=== PATIENT | male | born 1955 | race Caucasian/White ===

== ENCOUNTER 2016-07-30 16:25 | Inpatient (IN) | payer MEDICAID ==
[2016-07-30 17:44] LABS: Basophils % (Auto) 0.6 % (0.0-1.8); Hematocrit 44.9 % (35.5-45.6); Hemoglobin 14.7 gm/dl (11.8-15.2); Mean Corpuscular HGB Conc 33 % (32-34); Mean Corpuscular Hemoglobin 28 pg (28-32); Mean Corpuscular Volume 86 fl (84-94); Platelet Count 170 K/mm3 (140-440); Red Cell Distribution Width 13.2 % (13.2-15.2); White Blood Count 8.1 K/mm3 (4.5-11.0)
--- NOTE | 2016-07-30 17:54 | Admit Criteria Form ---
Admission Criteria Documentation: DIABETES Clinical Indications for Admission to Inpatient Care (Place 'X' for any and all applicable criteria): Admission is indicated by presence of ALL (if I & II) or ANY ONE (if III or IV) of the following (1)(2)(3)(4): [X]I. Diabetes is uncontrolled as indicated by ANY ONE of the following: [ ]a) Diabetic ketoacidosis as indicated by ALL of the following (8): [ ]i) Hyperglycemia (eg, plasma glucose greater than 200 mg/ dL (11.1 mmol/L)) [ ]ii) Acidosis (eg, arterial pH less than 7.30, serum bicarbonate level less than 15 mEq/L (mmol/L)) [ ]iii) Moderate ketonuria or ketonemia []b) Hyperglycemic hyperosmolar state as indicated by ALL of the following(9)(10): [ ]i) Neurologic dysfunction (eg, stupor, coma, hemiparesis , seizure)(13) [ ]ii) Plasma glucose greater than 600 mg/dL (33.3 mmol/L) [ ]iii) Serum osmolality greater than 320 mOsm/kg (mmol/kg) [X]c) Severe signs or symptoms secondary to hyperglycemia indicated by ANY ONE of the following: [ ]i) Altered mental status(10) [X]ii) Significant hypovolemia or dehydration [ ]iii) Intractable nausea or vomiting [ ]iv) Unexplained fever or severe infection [X]v) Severe electrolyte abnormality (eg, hypokalemia, hyperkalemia, hypernatremia) [ ]II. Management at other levels of care (Also use Diabetes: Observation Care as appropriate) is not feasible because of ANY ONE of the following: [ ]a) Condition was not adequately corrected with treatment at other levels of care. [ ]b) Treatment at other levels of care is not appropriate because of condition severity (eg, hyperosmolar coma). [ ]III. Contraindications and/or Inappropriate clinical situations for Observational Care in patients with Diabetes, when ANY ONE of the following is required: [ ]a) Patient require specific diagnostic workup or therapeutic intervention 22 [ ]b) Patient with abnormal vital signs or altered mental status 23 [ ]IV. General contraindications and/or Inappropriate clinical situations for Observational Care in patients with Diabetes, when ANY ONE of the following is required: [ ]a) Prediction of prolongation of LOS based on ANY ONE of the following may be considered as a contraindication for observational care 2, 3, 4, 5, 6, 7, 8, 9, 10, 11 [ ]i) Age > 65 yrs. [ ]ii) Patient arriving by ambulance [ ]iii) Patient with high acuity [ ]iv) Patient requiring vital sign monitoring [ ]v) Patient on IV medication [ ]b) Systolic blood pressures 180mmHg 3,12 [ ]c) Patient with altered mental status including delirium and other alteration of consciousness, (3) [ ]d) Patient whose discharge disposition will be to a fpc home or rehabilitation home should not be managed in Emergency Department Observation Unit. CMS rule requires 3 days hospital stay before such placement.3,13 [ ]e) Patient with failure to thrive due to broad array of etiologies 3,16,17 [ ]f) Inability to ambulate 3,14 Extended stay beyond goal length of stay may be needed for(3)(20): [ ]a) Treatment of precipitating causes [ ]b) Development of hypoglycemia [ ]c) Complications of treatment [ ]d) Complications of decompensated diabetes (eg, acute gastric dilatation, persistent metabolic or neurologic derangement) [ ]e) Active Comorbidities [ ]f) Older patients( 65 years or older) The original [employer] content created by [employer] has been revised. The portions of the content which have been revised are identified through the use of italic text or in bold,and [facility] has neither reviewed nor approved the modified material. All other unmodified content is copyright [facility]. Please see references footnoted in the original [facility] edition 2016 Admission Criteria Met: Yes
[2016-07-30] MEDS ORDERED: NACL 0.9% 1000 ML 1,000 ML IV ONE ×2 (17:56→19:16)
[2016-07-30 18:26] LABS: BUN/Creatinine Ratio 16.19; Calcium 9.4 mg/dL (8.4-10.2); Chloride 90.1 mmol/L (98-107); Potassium 5.4 mmol/L (3.6-5.0)
--- NOTE | 2016-07-30 18:36 | Emergency Department Report ---
- General Chief complaint: Hyperglycemia Stated complaint: SUGAR HIGH Time Seen by Provider: 07/30/16 17:55 Source: patient Mode of arrival: Ambulatory Limitations: No Limitations - History of Present Illness Initial comments: Patient is a 61-year-old male with a history of CVA wit left sided weakness, hypertension, hyperlipidemia, and diabetes in the past presented for hyperglycemia. He was evaluated by his PMD yesterday and had blood work done as a routine checkup, but he reports he was then called by PMD this morning and told to come to the ER for elevated glucose levels. Patient does report to me that he said he drank a can of Dr. Perez prior to getting his blood work done yesterday at the PMDs office. Patient does have a history of diabetes in the past and was managed with diet and exercise he no longer takes medications for DM. Otherwise he has no other complaints and has been in his normal state of health. - Related Data Home Medications Medication Instructions Recorded Confirmed Last Taken Unobtainable 07/30/16 07/30/16 Unknown Allergies Allergy/AdvReac Type Severity Reaction Status Date / Time No Known Allergies Allergy Unverified 07/30/16 17:18 ED Review of Systems ROS: Stated complaint: SUGAR HIGH Other details as noted in HPI Comment: All other systems reviewed and negative ED Past Medical Hx - Past Medical History Hx Hypertension: Yes Hx CVA: Yes Hx Diabetes: Yes - Surgical History Additional Surgical History: eye - Social History Smoking Status: Never Smoker Substance Use Type: None - Medications Home Medications: Home Medications Medication Instructions Recorded Confirmed Last Taken Type Unobtainable 07/30/16 07/30/16 Unknown History ED Physical Exam - General Limitations: No Limitations General appearance: alert, in no apparent distress - Head Head exam: Present: atraumatic, normocephalic - Eye Eye exam: Present: normal appearance - ENT ENT exam: Present: mucous membranes moist - Neck Neck exam: Present: normal inspection - Respiratory Respiratory exam: Present: normal lung sounds bilaterally. Absent: respiratory distress - Cardiovascular Cardiovascular Exam: Present: regular rate, normal rhythm. Absent: systolic murmur, diastolic murmur, rubs, gallop - GI/Abdominal GI/Abdominal exam: Present: soft, normal bowel sounds - Rectal Rectal exam: Present: deferred - Extremities Exam Extremities exam: Present: normal inspection - Back Exam Back exam: Present: normal inspection - Neurological Exam Neurological exam: Present: alert, oriented X3, CN II-XII intact, abnormal gait , other (L sided weakness, baseline) - Psychiatric Psychiatric exam: Present: normal affect, normal mood - Skin Skin exam: Present: warm, dry, intact, normal color. Absent: rash ED Course Vital Signs 07/30/16 07/30/16 07/30/16 17:18 19:16 19:41 Temperature 98.2 F 98.1 F Pulse Rate 102 H 79 Respiratory 99 H 16 16 Rate Blood Pressure 136/94 Blood Pressure 150/105 [Right] O2 Sat by Pulse 99 97 100 Oximetry 07/31/16 00:42 Temperature 98.2 F Pulse Rate 84 Respiratory 14 Rate Blood Pressure Blood Pressure 152/105 [Right] O2 Sat by Pulse 99 Oximetry ED Medical Decision Making - Lab Data Result diagrams: 07/30/16 17:35 07/30/16 23:44 - EKG Data -: EKG Interpreted by Me ([id number]) EKG shows normal: sinus rhythm, axis (NORMAL), intervals (Qtc:419ms), ST-T waves (q waves in III, (-)STEMI) Rate: normal (80 bpm) - Medical Decision Making patient s/p 2L of NS IVF and 5units of regular insulin. Pt's FSG has improved to 355, however, he remains acidotic, AG has increased from 21 to 22, his bicarb level has dropped from 21 to 15. Pt to remain in the hospital for further management. Critical care attestation.: If time is entered above; I have spent that time in minutes in the direct care of this critically ill patient, excluding procedure time. ED Disposition Clinical Impression: Diabetes, Secondary diabetes mellitus with HHNC (hyperglycemia hyperosmolar non -ketotic coma) Clinical Impression: (Ruled Out): HHNC (hyperglycemic hyperosmolar nonketotic coma) Disposition: OP ADMITTED IP TO THIS HOSP Is pt being admited?: Yes Condition: Stable
[2016-07-30 18:59] LABS: Bilirubin,Urine NEG (Negative); Blood,Urine NEG (Negative); Ketones,Urine NEG (Negative); Leukocyte Esterase,Urine NEG (Negative); Mucus,Urine FEW /HPF; Nitrite,Urine NEG (Negative); Protein,Urine <15 mg/dL mg/dL (Negative); Urobilinogen,Urine < 2.0 mg/dL (<2.0)
[2016-07-31 00:26] LABS: BUN/Creatinine Ratio 16.66; Calcium 8.8 mg/dL (8.4-10.2); Chloride 94.3 mmol/L (98-107); Potassium 5.2 mmol/L (3.6-5.0)
[2016-07-31] MEDS ORDERED: D50W (25GM) IV PRN (01:54)
[2016-07-31] MEDS ORDERED: ZOFRAN IV PRN (01:57)
[2016-07-31] MEDS ORDERED: TYLENOL PO PRN (02:01)
[2016-07-31] MEDS: NACL 0.9% 1000 ML 1,000 ML IV SCH ×3 (05:00→19:16)
--- NOTE | 2016-07-31 08:02 | History and Physical Report ---
CHIEF COMPLAINT: Finding of high blood sugar. HISTORY OF PRESENT ILLNESS: The patient is a 61-year-old male who has a history of diabetes mellitus in the past and has not been following up with his primary care doctor and decided to go and see his primary care doctor. He stated he felt funny on the left side of his body, but denied history of numbness or weakness and stated that he made up his mind to go for a followup with his primary care doctor. Last time, he got there his blood sugar was detected to be very high and he was told to go to the Emergency Room. There was no history of dizziness. No history of chest pain, shortness of breath. The patient also denies history of polyuria or polydipsia and presented to the Emergency Room. PAST MEDICAL HISTORY: Pertinent for CVA with left-sided weakness, hypertension, hyperlipidemia and diabetes mellitus. PAST SURGICAL HISTORY: Pertinent for eye surgery. FAMILY HISTORY: Noncontributory. SOCIAL HISTORY: The patient does not smoke, does not drink alcohol and does not use illicit drugs. MEDICATIONS: The patient's home medications are not known at this time. ALLERGIES: There are no known drug allergies. REVIEW OF SYSTEMS: CONSTITUTIONAL: There is no fever, no chills, no diaphoresis. HEENT: There is no headache or sore throat. CARDIOVASCULAR: There is no chest pain, orthopnea. RESPIRATORY: There is no shortness of breath or cough. GASTROINTESTINAL: There is no nausea, no vomiting, no abdominal pain, diarrhea or constipation. NEUROLOGICAL: There is no numbness, no dizziness, no altered mental status. MUSCULOSKELETAL: There is no joint pain or swelling. DERMATOLOGICAL: There is no skin rash or itching. GENITOURINARY: There is no dysuria, hematuria, or flank pain. Rest of system review is normal. PHYSICAL EXAMINATION: GENERAL: At the time of exam, the patient was found to be alert, oriented x 3 and not in acute distress. VITAL SIGNS: Shows temperature of 98.2, pulse of 102, respirations 16, blood pressure 136/94, O2 sat of 99% on room air. HEENT: Showed pupils to be equal, round, reactive to light and accommodation. Extraocular muscles are intact. NECK: Supple with no JVD or carotid bruit. CARDIOVASCULAR SYSTEM: Showed first and second heart sounds with no gallops or murmur. RESPIRATORY: Showed good air entry on both sides of the lung with no abnormal breath sounds. GASTROINTESTINAL SYSTEM: Showed abdomen to be full, soft, nontender with no organomegaly or rigidity. NEUROLOGIC: Showed no focal deficit. MUSCULOSKELETAL: Showed no joint swelling or tenderness. DERMATOLOGICAL SYSTEM: Showed no skin rash. GENITOURINARY: Showing no costovertebral angle tenderness. PERTINENT LABORATORY AND IMAGING STUDIES: The patient has CBC done with normal white count, normal hemoglobin and normal hematocrit. CBC differential showed elevated monocytes, otherwise unremarkable. The patient's venous blood gas pH was 7.29. The patient's chemistry shows low sodium of 130, elevated potassium of 5.4. The patient's chemistry show also elevated potassium of 5.4, low chloride level, normal CO2 of 24, elevated BUN of 34 with elevated creatinine of 2.1 and anion gap of 16 with high blood glucose of 515. Repeat chemistry shows low sodium of 126, high potassium of 5.2, which is a decrease from 5.4, elevated chloride of 94 with low CO2 of 15 and anion gap of 15 and a high BUN of 30, which is a decrease from 34 and a high creatinine of 1.8, which is a decrease from 2.1 with high glucose of 355, which is decreased from 515. DIAGNOSES: 1. Hyperglycemia. 2. Hyperkalemia. PLAN: The patient will be admitted to telemetry and will be on IV normal saline at 150 mL an hour. The patient will have Accu-Chek q. 4 hours followed by low-dose sliding scale coverage using regular insulin. The patient will have basic metabolic panel checked in the morning and will be on IV Zofran 4 mg q. 6 hours for nausea and vomiting and Tylenol 650 mg p.o. q 4 hours. The patient will have the glucose monitored and as soon as the patient's glucose normalizes the patient will be fed with consistent carbohydrate diet and 2 gram sodium diet. The patient's home medications will be collected from patient/pharmacy and reconciled and applied. JOB# [id number] [facility]/DERICK MARTÍNEZ
[2016-07-31 08:26] LABS: BUN/Creatinine Ratio 17.85; Calcium 8.6 mg/dL (8.4-10.2); Chloride 99.5 mmol/L (98-107); Potassium 4.6 mmol/L (3.6-5.0)
[2016-07-31] MEDS: HEPARIN SUB-Q SCH ×2 (09:05→21:36)
[2016-07-31] MEDS ORDERED: PNEUMOVAX 23 IM ONE (12:00)
[2016-07-31] MEDS ORDERED: FLUARIX QUAD 2016-2017(36 MOS+) IM ONE (12:00)
[2016-07-31] MEDS: APRESOLINE PO SCH (19:16)
[2016-07-31] MEDS ORDERED: HYDRALAZINE 25 MG PO SCH (20:00)
[2016-07-31] MEDS: COREG PO SCH (21:35)
[2016-07-31] MEDS: ELAVIL PO SCH (21:36)
[2016-07-31] MEDS: DILANTIN PO SCH (21:36)
[2016-07-31] MEDS ORDERED: NON-FORMULARY (Coreg 12.5 MG) PO SCH (22:00)
[2016-08-01] MEDS: NACL 0.9% 1000 ML 1,000 ML IV SCH (06:06)
[2016-08-01] MEDS ORDERED: NON-FORMULARY (Aspirin 81 MG) PO SCH (10:00)
[2016-08-01] MEDS: HEPARIN SUB-Q SCH ×2 (10:06→21:29)
[2016-08-01] MEDS: APRESOLINE PO SCH ×3 (10:58→21:29)
[2016-08-01] MEDS: HALFPRIN EC PO SCH (11:05)
[2016-08-01] MEDS: COREG PO SCH ×2 (11:05→21:29)
--- NOTE | 2016-08-01 14:31 | Progress Note ---
Assessment and Plan Assessment and plan: 1. Nonketotic hyperosmolar hyperglycemia (uncontrolled type 2 diabetes) Due to noncompliance Intensively counseled regarding importance of adherence to treatment and follow- up appointments Check hemoglobin A1c Start insulin 70/30 along with SSI to assess insulin requirements and make adjustments No metformin given renal impairment 2. Hypertension On beta steve; not on ACEI/diuretics due to renal impairment Monitor BP and adjust treatment (add hydralazine if needed) 3. Hyperkalemia Medically treated Resolved 4. Hyponatremia Improving 5. Acute renal failure or GISSELL superimposed on CKD Renal function improving IV fluids Continue to closely monitor 6. Hyperlipidemia Not on medication Check lipid profile and start statin 7. ? Questionable history of stroke On aspirin, add statin 8. Psych disorder/depression Continue amitriptyline 9. DVT prophylaxis Heparin subcutaneous History Interval history: No specific complaints; long discussion about his uncontrolled diabetes, hypertension, lack off PCP follow-up, treatment plan Hospitalist Physical - Constitutional Vitals: Temp Pulse Resp BP Pulse Ox 97.9 F 83 18 129/96 100 08/01/16 12:00 08/01/16 12:00 08/01/16 12:00 08/01/16 12:00 08/01/16 12:00 General appearance: Present: no acute distress, well-nourished - EENT Eyes: Present: PERRL, EOM intact. Absent: scleral icterus, conjunctival injection - Neck Neck: Present: supple. Absent: enlarged thyroid, masses or JVD - Respiratory Respiratory effort: normal Respiratory: bilateral: CTA, negative: rhonchi, wheezing - Cardiovascular Rhythm: other (tachycardia) Heart Sounds: Present: S1 & S2. Absent: systolic murmur - Extremities Extremities: no ischemia - Abdominal General gastrointestinal: soft, non-tender, non-distended, normal bowel sounds - Integumentary Integumentary: Present: warm, dry. Absent: jaundice, rash - Psychiatric Psychiatric: cooperative - Neurologic Neurologic: CNII-XII intact, no focal deficits Results - Labs CBC & Chem 7: 07/30/16 17:35 07/31/16 07:59 Labs: Laboratory Last Values WBC 8.1 K/mm3 (4.5-11.0) 07/30/16 17:35 RBC 5.20 M/mm3 (3.65-5.03) H 07/30/16 17:35 Hgb 14.7 gm/dl (11.8-15.2) 07/30/16 17:35 Hct 44.9 % (35.5-45.6) 07/30/16 17:35 MCV 86 fl (84-94) 07/30/16 17:35 MCH 28 pg (28-32) 07/30/16 17:35 MCHC 33 % (32-34) 07/30/16 17:35 RDW 13.2 % (13.2-15.2) 07/30/16 17:35 Plt Count 170 K/mm3 (140-440) 07/30/16 17:35 Lymph % (Auto) 26.7 % (13.4-35.0) 07/30/16 17:35 [place] % (Auto) 7.7 % (0.0-7.3) H 07/30/16 17:35 Eos % (Auto) 2.0 % (0.0-4.3) 07/30/16 17:35 Baso % (Auto) 0.6 % (0.0-1.8) 07/30/16 17:35 Lymph # 2.2 K/mm3 (1.2-5.4) 07/30/16 17:35 [place] # 0.6 K/mm3 (0.0-0.8) 07/30/16 17:35 Eos # 0.2 K/mm3 (0.0-0.4) 07/30/16 17:35 Baso # 0.0 K/mm3 (0.0-0.1) 07/30/16 17:35 Seg Neutrophils % 63.0 % (40.0-70.0) 07/30/16 17:35 Seg Neutrophils # 5.1 K/mm3 (1.8-7.7) 07/30/16 17:35 VBG pH 7.292 (7.320-7.420) L 07/30/16 17:35 Sodium 134 mmol/L (137-145) L D 07/31/16 07:59 Potassium 4.6 mmol/L (3.6-5.0) 07/31/16 07:59 Chloride 99.5 mmol/L (98-107) 07/31/16 07:59 Carbon Dioxide 23 mmol/L (22-30) D 07/31/16 07:59 Anion Gap 16 mmol/L 07/31/16 07:59 BUN 25 mg/dL (9-20) H 07/31/16 07:59 Creatinine 1.4 mg/dL (0.8-1.5) 07/31/16 07:59 Estimated GFR 51 ml/min 07/31/16 07:59 BUN/Creatinine Ratio 17.85 % 07/31/16 07:59 Glucose 305 mg/dL (75-100) H 07/31/16 07:59 POC Glucose 327 (70-105) H 08/01/16 11:57 Lactic Acid 1.70 mmol/L (0.7-2.0) 07/31/16 01:30 Calcium 8.6 mg/dL (8.4-10.2) 07/31/16 07:59 Urine Color Yellow (Yellow) 07/30/16 18:36 Urine Turbidity Clear (Clear) 07/30/16 18:36 Urine pH 5.0 (5.0-7.0) 07/30/16 18:36 Ur Specific [place] 1.022 (1.003-1.030) 07/30/16 18:36 Urine Protein <15 mg/dl mg/dL (Negative) 07/30/16 18:36 Urine Glucose (UA) >=500 mg/dL (Negative) 07/30/16 18:36 Urine Ketones Neg mg/dL (Negative) 07/30/16 18:36 Urine Blood Neg (Negative) 07/30/16 18:36 Urine Nitrite Neg (Negative) 07/30/16 18:36 Urine Bilirubin Neg (Negative) 07/30/16 18:36 Urine Urobilinogen < 2.0 mg/dL (<2.0) 07/30/16 18:36 Ur Leukocyte Esterase Neg (Negative) 07/30/16 18:36 Urine WBC (Auto) 0.0 /HPF (0.0-6.0) 07/30/16 18:36 Urine RBC (Auto) 1.0 /HPF (0.0-6.0) 07/30/16 18:36 U Epithel Cells (Auto) < 1.0 /HPF (0-13.0) 07/30/16 18:36 Hyaline Casts 1 /LPF 07/30/16 18:36 Urine Mucus Few /HPF 07/30/16 18:36
[2016-08-01] MEDS: DILANTIN PO SCH (21:28)
[2016-08-01] MEDS: ELAVIL PO SCH (21:28)
[2016-08-01] MEDS ORDERED: COREG PO SCH (22:00)
[2016-08-02 06:54] LABS: Albumin 3.9 g/dL (3.9-5); Albumin/Globulin Ratio 1.3 %; BUN/Creatinine Ratio 14.61; Bilirubin,Total 0.3 mg/dL (0.1-1.2); Calcium 8.8 mg/dL (8.4-10.2); Chloride 99.6 mmol/L (98-107); Potassium 4.7 mmol/L (3.6-5.0); Total Protein 6.9 g/dL (6.3-8.2)
--- NOTE | 2016-08-02 10:02 | Progress Note ---
Assessment and Plan Assessment and plan: 1. Nonketotic hyperosmolar hyperglycemia (uncontrolled type 2 diabetes) Due to noncompliance Intensively counseled regarding importance of adherence to treatment and follow- up appointments Hemoglobin A1c 17.8 Started insulin 70/30 along with SSI to assess insulin requirements and make adjustments; increase dose today No metformin given renal impairment 2. Hypertension On beta steve; not on ACEI/diuretics due to renal impairment Monitor BP and adjust treatment (add hydralazine if needed) 3. Hyperkalemia Medically treated Resolved 4. Hyponatremia Improving 5. Acute renal failure or GISSELL superimposed on CKD Renal function improving with IV fluids Continue to closely monitor (Cr 1.3 today) 6. Hyperlipidemia Not on medication Lipid profile checked and elevated LDL, TG Started on statin 7. ? Questionable history of stroke On aspirin, statin added 8. Psych disorder/depression Continue amitriptyline 9. DVT prophylaxis Heparin subcutaneous History Interval history: No specific complaints Hospitalist Physical - Constitutional Vitals: Temp Pulse Resp BP Pulse Ox 98.6 F 88 18 123/85 99 08/02/16 09:58 08/02/16 09:58 08/02/16 09:58 08/02/16 09:58 08/02/16 09:58 General appearance: Present: no acute distress - EENT Eyes: Present: PERRL, EOM intact. Absent: scleral icterus, conjunctival injection - Neck Neck: Present: supple, normal ROM. Absent: masses or JVD - Respiratory Respiratory effort: normal Respiratory: bilateral: CTA, negative: rhonchi, wheezing - Cardiovascular Rhythm: regular Heart Sounds: Present: S1 & S2. Absent: systolic murmur - Extremities Extremities: no ischemia - Abdominal General gastrointestinal: soft, non-tender, non-distended, normal bowel sounds - Neurologic Neurologic: CNII-XII intact, no focal deficits Results - Labs CBC & Chem 7: 07/30/16 17:35 08/02/16 06:08 Labs: Laboratory Last Values WBC 8.1 K/mm3 (4.5-11.0) 07/30/16 17:35 RBC 5.20 M/mm3 (3.65-5.03) H 07/30/16 17:35 Hgb 14.7 gm/dl (11.8-15.2) 07/30/16 17:35 Hct 44.9 % (35.5-45.6) 07/30/16 17:35 MCV 86 fl (84-94) 07/30/16 17:35 MCH 28 pg (28-32) 07/30/16 17:35 MCHC 33 % (32-34) 07/30/16 17:35 RDW 13.2 % (13.2-15.2) 07/30/16 17:35 Plt Count 170 K/mm3 (140-440) 07/30/16 17:35 Lymph % (Auto) 26.7 % (13.4-35.0) 07/30/16 17:35 [place] % (Auto) 7.7 % (0.0-7.3) H 07/30/16 17:35 Eos % (Auto) 2.0 % (0.0-4.3) 07/30/16 17:35 Baso % (Auto) 0.6 % (0.0-1.8) 07/30/16 17:35 Lymph # 2.2 K/mm3 (1.2-5.4) 07/30/16 17:35 [place] # 0.6 K/mm3 (0.0-0.8) 07/30/16 17:35 Eos # 0.2 K/mm3 (0.0-0.4) 07/30/16 17:35 Baso # 0.0 K/mm3 (0.0-0.1) 07/30/16 17:35 Seg Neutrophils % 63.0 % (40.0-70.0) 07/30/16 17:35 Seg Neutrophils # 5.1 K/mm3 (1.8-7.7) 07/30/16 17:35 VBG pH 7.292 (7.320-7.420) L 07/30/16 17:35 Sodium 136 mmol/L (137-145) L 08/02/16 06:08 Potassium 4.7 mmol/L (3.6-5.0) 08/02/16 06:08 Chloride 99.6 mmol/L (98-107) 08/02/16 06:08 Carbon Dioxide 22 mmol/L (22-30) 08/02/16 06:08 Anion Gap 19 mmol/L 08/02/16 06:08 BUN 19 mg/dL (9-20) 08/02/16 06:08 Creatinine 1.3 mg/dL (0.8-1.5) 08/02/16 06:08 Estimated GFR 56 ml/min 08/02/16 06:08 BUN/Creatinine Ratio 14.61 % 08/02/16 06:08 Glucose 196 mg/dL (75-100) H 08/02/16 06:08 POC Glucose 219 (70-105) H 08/01/16 21:37 Hemoglobin A1c 17.8 % (4-6) H 08/02/16 06:11 Lactic Acid 1.70 mmol/L (0.7-2.0) 07/31/16 01:30 Calcium 8.8 mg/dL (8.4-10.2) 08/02/16 06:08 Total Bilirubin 0.30 mg/dL (0.1-1.2) 08/02/16 06:08 AST 12 units/L (5-40) 08/02/16 06:08 ALT 11 units/L (7-56) 08/02/16 06:08 Alkaline Phosphatase 98 units/L (35-129) 08/02/16 06:08 Total Protein 6.9 g/dL (6.3-8.2) 08/02/16 06:08 Albumin 3.9 g/dL (3.9-5) 08/02/16 06:08 Albumin/Globulin Ratio 1.3 % 08/02/16 06:08 Triglycerides 154 mg/dL (2-149) H 08/02/16 06:11 Cholesterol 178 mg/dL (50-199) 08/02/16 06:11 LDL Cholesterol Direct 104 mg/dL (50-130) 08/02/16 06:11 HDL Cholesterol 44 mg/dL (40-59) 08/02/16 06:11 Cholesterol/HDL Ratio 4.04 % 08/02/16 06:11 Urine Color Yellow (Yellow) 07/30/16 18:36 Urine Turbidity Clear (Clear) 07/30/16 18:36 Urine pH 5.0 (5.0-7.0) 07/30/16 18:36 Ur Specific [place] 1.022 (1.003-1.030) 07/30/16 18:36 Urine Protein <15 mg/dl mg/dL (Negative) 07/30/16 18:36 Urine Glucose (UA) >=500 mg/dL (Negative) 07/30/16 18:36 Urine Ketones Neg mg/dL (Negative) 07/30/16 18:36 Urine Blood Neg (Negative) 07/30/16 18:36 Urine Nitrite Neg (Negative) 07/30/16 18:36 Urine Bilirubin Neg (Negative) 07/30/16 18:36 Urine Urobilinogen < 2.0 mg/dL (<2.0) 07/30/16 18:36 Ur Leukocyte Esterase Neg (Negative) 07/30/16 18:36 Urine WBC (Auto) 0.0 /HPF (0.0-6.0) 07/30/16 18:36 Urine RBC (Auto) 1.0 /HPF (0.0-6.0) 07/30/16 18:36 U Epithel Cells (Auto) < 1.0 /HPF (0-13.0) 07/30/16 18:36 Hyaline Casts 1 /LPF 07/30/16 18:36 Urine Mucus Few /HPF 07/30/16 18:36
[2016-08-02] MEDS: COREG PO SCH ×2 (12:00→21:05)
[2016-08-02] MEDS: APRESOLINE PO SCH ×3 (12:00→21:06)
[2016-08-02] MEDS: HEPARIN SUB-Q SCH ×2 (12:00→21:05)
[2016-08-02] MEDS: HALFPRIN EC PO SCH (12:00)
[2016-08-02] MEDS: ELAVIL PO SCH (21:05)
[2016-08-02] MEDS: DILANTIN PO SCH (21:05)
[2016-08-03] MEDS: APRESOLINE PO SCH ×3 (08:35→22:04)
[2016-08-03] MEDS: HEPARIN SUB-Q SCH ×2 (10:32→22:05)
[2016-08-03] MEDS: HALFPRIN EC PO SCH (10:32)
[2016-08-03] MEDS: COREG PO SCH ×2 (10:32→22:05)
--- NOTE | 2016-08-03 13:23 | Progress Note ---
Assessment and Plan Assessment and plan: 1. Nonketotic hyperosmolar hyperglycemia (uncontrolled type 2 diabetes) Due to noncompliance Intensively counseled regarding importance of adherence to treatment and follow- up appointments Hemoglobin A1c 17.8 Started insulin 70/30 along with SSI to assess insulin requirements and make adjustments; further increase dose today No metformin given renal impairment (recheck in am) 2. Hypertension On beta steve; not on ACEI/diuretics due to renal impairment Monitor BP and adjust treatment (add hydralazine if needed) 3. Hyperkalemia Medically treated Resolved 4. Hyponatremia Improving 5. Acute renal failure or GISSELL superimposed on CKD Renal function improving with IV fluids Continue to closely monitor 6. Hyperlipidemia Not on medication Lipid profile checked and elevated LDL, TG Started on statin 7. ? Questionable history of stroke On aspirin, statin added 8. Psych disorder/depression Continue amitriptyline 9. DVT prophylaxis Heparin subcutaneous 10. Discharge planning issues Case management consulted for assistance History Interval history: no specific complaints Hospitalist Physical - Constitutional Vitals: Temp Pulse Resp BP Pulse Ox 97.6 F 91 H 16 107/71 100 08/03/16 08:00 08/03/16 10:32 08/03/16 08:00 08/03/16 10:32 08/03/16 08:00 General appearance: Present: no acute distress - EENT Eyes: Present: PERRL, EOM intact ENT: clear oral mucosa, poor dentition - Neck Neck: Present: supple. Absent: enlarged thyroid, masses or JVD - Respiratory Respiratory effort: normal Respiratory: bilateral: CTA, negative: rales, rhonchi, wheezing - Cardiovascular Rhythm: regular Heart Sounds: Present: S1 & S2. Absent: systolic murmur - Extremities Extremities: no ischemia - Abdominal General gastrointestinal: soft, non-tender, non-distended, normal bowel sounds - Psychiatric Psychiatric: cooperative - Neurologic Neurologic: CNII-XII intact, no focal deficits Results - Labs CBC & Chem 7: 07/30/16 17:35 08/02/16 06:08 Labs: Laboratory Last Values WBC 8.1 K/mm3 (4.5-11.0) 07/30/16 17:35 RBC 5.20 M/mm3 (3.65-5.03) H 07/30/16 17:35 Hgb 14.7 gm/dl (11.8-15.2) 07/30/16 17:35 Hct 44.9 % (35.5-45.6) 07/30/16 17:35 MCV 86 fl (84-94) 07/30/16 17:35 MCH 28 pg (28-32) 07/30/16 17:35 MCHC 33 % (32-34) 07/30/16 17:35 RDW 13.2 % (13.2-15.2) 07/30/16 17:35 Plt Count 170 K/mm3 (140-440) 07/30/16 17:35 Lymph % (Auto) 26.7 % (13.4-35.0) 07/30/16 17:35 [place] % (Auto) 7.7 % (0.0-7.3) H 07/30/16 17:35 Eos % (Auto) 2.0 % (0.0-4.3) 07/30/16 17:35 Baso % (Auto) 0.6 % (0.0-1.8) 07/30/16 17:35 Lymph # 2.2 K/mm3 (1.2-5.4) 07/30/16 17:35 [place] # 0.6 K/mm3 (0.0-0.8) 07/30/16 17:35 Eos # 0.2 K/mm3 (0.0-0.4) 07/30/16 17:35 Baso # 0.0 K/mm3 (0.0-0.1) 07/30/16 17:35 Seg Neutrophils % 63.0 % (40.0-70.0) 07/30/16 17:35 Seg Neutrophils # 5.1 K/mm3 (1.8-7.7) 07/30/16 17:35 VBG pH 7.292 (7.320-7.420) L 07/30/16 17:35 Sodium 136 mmol/L (137-145) L 08/02/16 06:08 Potassium 4.7 mmol/L (3.6-5.0) 08/02/16 06:08 Chloride 99.6 mmol/L (98-107) 08/02/16 06:08 Carbon Dioxide 22 mmol/L (22-30) 08/02/16 06:08 Anion Gap 19 mmol/L 08/02/16 06:08 BUN 19 mg/dL (9-20) 08/02/16 06:08 Creatinine 1.3 mg/dL (0.8-1.5) 08/02/16 06:08 Estimated GFR 56 ml/min 08/02/16 06:08 BUN/Creatinine Ratio 14.61 % 08/02/16 06:08 Glucose 196 mg/dL (75-100) H 08/02/16 06:08 POC Glucose 233 (70-105) H 08/03/16 11:49 Hemoglobin A1c 17.8 % (4-6) H 08/02/16 06:11 Lactic Acid 1.70 mmol/L (0.7-2.0) 07/31/16 01:30 Calcium 8.8 mg/dL (8.4-10.2) 08/02/16 06:08 Total Bilirubin 0.30 mg/dL (0.1-1.2) 08/02/16 06:08 AST 12 units/L (5-40) 08/02/16 06:08 ALT 11 units/L (7-56) 08/02/16 06:08 Alkaline Phosphatase 98 units/L (35-129) 08/02/16 06:08 Total Protein 6.9 g/dL (6.3-8.2) 08/02/16 06:08 Albumin 3.9 g/dL (3.9-5) 08/02/16 06:08 Albumin/Globulin Ratio 1.3 % 08/02/16 06:08 Triglycerides 154 mg/dL (2-149) H 08/02/16 06:11 Cholesterol 178 mg/dL (50-199) 08/02/16 06:11 LDL Cholesterol Direct 104 mg/dL (50-130) 08/02/16 06:11 HDL Cholesterol 44 mg/dL (40-59) 08/02/16 06:11 Cholesterol/HDL Ratio 4.04 % 08/02/16 06:11 Urine Color Yellow (Yellow) 07/30/16 18:36 Urine Turbidity Clear (Clear) 07/30/16 18:36 Urine pH 5.0 (5.0-7.0) 07/30/16 18:36 Ur Specific [place] 1.022 (1.003-1.030) 07/30/16 18:36 Urine Protein <15 mg/dl mg/dL (Negative) 07/30/16 18:36 Urine Glucose (UA) >=500 mg/dL (Negative) 07/30/16 18:36 Urine Ketones Neg mg/dL (Negative) 07/30/16 18:36 Urine Blood Neg (Negative) 07/30/16 18:36 Urine Nitrite Neg (Negative) 07/30/16 18:36 Urine Bilirubin Neg (Negative) 07/30/16 18:36 Urine Urobilinogen < 2.0 mg/dL (<2.0) 07/30/16 18:36 Ur Leukocyte Esterase Neg (Negative) 07/30/16 18:36 Urine WBC (Auto) 0.0 /HPF (0.0-6.0) 07/30/16 18:36 Urine RBC (Auto) 1.0 /HPF (0.0-6.0) 07/30/16 18:36 U Epithel Cells (Auto) < 1.0 /HPF (0-13.0) 07/30/16 18:36 Hyaline Casts 1 /LPF 07/30/16 18:36 Urine Mucus Few /HPF 07/30/16 18:36
[2016-08-03] MEDS: DILANTIN PO SCH (22:05)
[2016-08-03] MEDS: ELAVIL PO SCH (22:05)
[2016-08-04 05:50] LABS: BUN/Creatinine Ratio 16.15; Calcium 8.3 mg/dL (8.4-10.2); Potassium 4.7 mmol/L (3.6-5.0)
[2016-08-04] MEDS: APRESOLINE PO SCH ×3 (10:19→20:24)
[2016-08-04] MEDS: HALFPRIN EC PO SCH (10:19)
[2016-08-04] MEDS: HEPARIN SUB-Q SCH ×2 (10:22→22:27)
[2016-08-04] MEDS: COREG PO SCH ×2 (10:24→22:26)
--- NOTE | 2016-08-04 10:32 | Query- Renal Failure ---
Berhane Hernandez____Vignesh Date:___08/04/16 Regional Geodetic Advisor/CDS:__Lan Dover Phone#:___[phone] Exercise your independent professional judgment when responding to query. Questions asked do not imply a particular answer is desired or expected. We greatly appreciate your clarification on this issue. Clinical Documentation States: 61 year old male was admitted on 07/31/16. The hospitalist progress note (08/03/16) states " Acute renal failure or GISSELL superimposed on CKD Renal function improving with IV fluids Continue to closely monitor " Clinical Findings Show: 07/30/16 08/04/16 Creatinine: 2.1 1.3 Please clarify if you mean: Acute Renal Failure with or due to: [ ] Tubular Necrosis [ ] Medullary Necrosis [x ] Vasomotor Nephropathy [ ] Shock Kidney [ ] Tubular Nephrosis [ ] Renal Tubular Stasis [ ] Cortical Necrosis [ ] Acute Renal Failure (unspecified) [ ] Lower Tubular Nephrosis [ ] Other: [ ] Not Applicable Present on Admission: [x ] Yes (Y) [ ] Clinically undeterminable (W) [ ] No (N) Please also document response in your Progress Notes and/or Discharge Summary and indicate if the condition was present on admission. MTDD
--- NOTE | 2016-08-04 18:46 | Progress Note ---
Assessment and Plan Assessment and plan: --Nonketotic hyperosmolar hyperglycemia (uncontrolled type 2 diabetes) Due to noncompliance ,Hemoglobin A1c 17.8 Sugars are reasonable level , continue Accu-Chek sliding scale coverage insulin Counseling done strongly advised to adhere to the treatment and diet plan , follow up with primary care physician periodically -- Hypertension; moderate control Continue beta steve; no ACEI/diuretics due to renal impairment Monitor BP and adjust treatment (add hydralazine if needed) -- Hyperkalemia corrected , closely monitored and electrolytes --Hyponatremia due to pseudohyponatremia Improving -- Acute renal failure or GISSELL superimposed on CKD Renal function back to normal levels -- Hyperlipidemia ; Continue statin --History of stroke On aspirin, and statin -- Psych disorder/depression Continue amitriptyline -- DVT prophylaxis Heparin subcutaneous -- Discharge planning possibly discharge to [facility] tomorrow With home health nurse for management Plan of care discussed with the patient his nurse and case management History Interval history: Patient seen and evaluated medical records reviewed Patient feels better no new complaints Blood sugars are reasonable levels Denies any nausea or vomiting Alert awake oriented 3 .not in acute distress Hospitalist Physical - Constitutional Vitals: Temp Pulse Resp BP Pulse Ox 98.6 F 80 20 136/91 97 08/04/16 16:00 08/04/16 16:00 08/04/16 16:00 08/04/16 16:00 08/04/16 16:00 General appearance: Present: no acute distress, well-nourished - EENT Eyes: Present: PERRL, EOM intact - Neck Neck: Present: supple, normal ROM - Respiratory Respiratory effort: normal Respiratory: bilateral: diminished, negative: rales, rhonchi, wheezing - Cardiovascular Rhythm: regular Heart Sounds: Present: S1 & S2 - Extremities Extremities: no ischemia, pulses intact, pulses symmetrical Peripheral Pulses: within normal limits - Abdominal General gastrointestinal: soft, non-tender, non-distended, normal bowel sounds - Integumentary Integumentary: Present: clear, warm - Psychiatric Psychiatric: appropriate mood/affect, cooperative - Neurologic Neurologic: CNII-XII intact, moves all extremities Results - Labs CBC & Chem 7: 07/30/16 17:35 08/04/16 04:18 Labs: Laboratory Last Values WBC 8.1 K/mm3 (4.5-11.0) 07/30/16 17:35 RBC 5.20 M/mm3 (3.65-5.03) H 07/30/16 17:35 Hgb 14.7 gm/dl (11.8-15.2) 07/30/16 17:35 Hct 44.9 % (35.5-45.6) 07/30/16 17:35 MCV 86 fl (84-94) 07/30/16: MCH 28 pg (28-32) 07/30/16 17: MCHC 33 % (32-34) 07/30/16 17:35 RDW 13.2 % (13.2-15.2) 07/30/16:35 Plt Count 170 K/mm3 (140-440) 07/30/16:35 Lymph % (Auto) 26.7 % (13.4-35.0) 07/30/16:35 [place] % (Auto) 7.7 % (0.0-7.3) H 07/30/16 17:35 Eos % (Auto) 2.0 % (0.0-4.3) 07/30/16 17:35 Baso % (Auto) 0.6 % (0.0-1.8) 07/30/16: Lymph # 2.2 K/mm3 (1.2-5.4) 07/30/16: [place] # 0.6 K/mm3 (0.0-0.8) 07/30/16 17:35 Eos # 0.2 K/mm3 (0.0-0.4) 07/30/16 17:35 Baso # 0.0 K/mm3 (0.0-0.1) 07/30/16 17:35 Seg Neutrophils % 63.0 % (40.0-70.0) 07/30/16 17: Seg Neutrophils # 5.1 K/mm3 (1.8-7.7) 07/30/16: VBG pH 7.292 (7.320-7.420) L 07/30/16 17:35 Sodium 137 mmol/L (137-145) 08/04/16 04:18 Potassium 4.7 mmol/L (3.6-5.0) 08/04/16 04:18 Chloride 101.0 mmol/L (98-107) 08/04/16 04:18 Carbon Dioxide 21 mmol/L (22-30) L 08/04/16 04:18 Anion Gap 20 mmol/L 08/04/16 04:18 BUN 21 mg/dL (9-20) H 08/04/16 04:18 Creatinine 1.3 mg/dL (0.8-1.5) 08/04/16 04:18 Estimated GFR 56 ml/min 08/04/16 04:18 BUN/Creatinine Ratio 16.15 % 08/04/16 04:18 Glucose 120 mg/dL (75-100) H 08/04/16 04:18 POC Glucose 182 (70-105) H 08/04/16 16:15 Hemoglobin A1c 17.8 % (4-6) H 08/02/16 06:11 Lactic Acid 1.70 mmol/L (0.7-2.0) 07/31/16 01:30 Calcium 8.3 mg/dL (8.4-10.2) L 08/04/16 04:18 Total Bilirubin 0.30 mg/dL (0.1-1.2) 08/02/16 06:08 AST 12 units/L (5-40) 08/02/16 06:08 ALT 11 units/L (7-56) 08/02/16 06:08 Alkaline Phosphatase 98 units/L (35-129) 08/02/16 06:08 Total Protein 6.9 g/dL (6.3-8.2) 08/02/16 06:08 Albumin 3.9 g/dL (3.9-5) 08/02/16 06:08 Albumin/Globulin Ratio 1.3 % 08/02/16 06:08 Triglycerides 154 mg/dL (2-149) H 08/02/16 06:11 Cholesterol 178 mg/dL (50-199) 08/02/16 06:11 LDL Cholesterol Direct 104 mg/dL (50-130) 08/02/16 06:11 HDL Cholesterol 44 mg/dL (40-59) 08/02/16 06:11 Cholesterol/HDL Ratio 4.04 % 08/02/16 06:11 Urine Color Yellow (Yellow) 07/30/16 18:36 Urine Turbidity Clear (Clear) 07/30/16 18:36 Urine pH 5.0 (5.0-7.0) 07/30/16 18:36 Ur Specific [place] 1.022 (1.003-1.030) 07/30/16 18:36 Urine Protein <15 mg/dl mg/dL (Negative) 07/30/16 18:36 Urine Glucose (UA) >=500 mg/dL (Negative) 07/30/16 18:36 Urine Ketones Neg mg/dL (Negative) 07/30/16 18:36 Urine Blood Neg (Negative) 07/30/16 18:36 Urine Nitrite Neg (Negative) 07/30/16 18:36 Urine Bilirubin Neg (Negative) 07/30/16 18:36 Urine Urobilinogen < 2.0 mg/dL (<2.0) 07/30/16 18:36 Ur Leukocyte Esterase Neg (Negative) 07/30/16 18:36 Urine WBC (Auto) 0.0 /HPF (0.0-6.0) 07/30/16 18:36 Urine RBC (Auto) 1.0 /HPF (0.0-6.0) 07/30/16 18:36 U Epithel Cells (Auto) < 1.0 /HPF (0-13.0) 07/30/16 18:36 Hyaline Casts 1 /LPF 07/30/16 18:36 Urine Mucus Few /HPF 07/30/16 18:36
[2016-08-04] MEDS: DILANTIN PO SCH (22:25)
[2016-08-04] MEDS: ELAVIL PO SCH (22:26)
[2016-08-05 07:44] LABS: Calcium 8.5 mg/dL (8.4-10.2); Chloride 100.8 mmol/L (98-107); Magnesium 1.7 mg/dL (1.7-2.3); Phosphorous 3.4 mg/dL (2.5-4.5); Potassium 4.6 mmol/L (3.6-5.0)
[2016-08-05] MEDS: APRESOLINE PO SCH (08:33)
[2016-08-05 09:29] VITALS: BP 147/105
[2016-08-05] MEDS: COREG PO SCH (09:49)
[2016-08-05] MEDS: HALFPRIN EC PO SCH (09:49)
[2016-08-05] MEDS: HEPARIN SUB-Q SCH (09:50)
--- NOTE | 2016-08-05 10:34 | Discharge Summary ---
Providers - Providers Date of Admission: 07/31/16 01:51 Date of discharge: 08/05/16 Attending physician: JOCELYNE HOFFMANN Primary care physician: JOSSE MORENO Hospitalization Condition: Stable Disposition: DC/TX ANOTHER TYPE HEALTHCARE Core Measure Documentation - Palliative Care Palliative Care/ Comfort Measures: Not Applicable Exam - Constitutional Vitals: Temp Pulse Resp BP Pulse Ox 98.5 F 108 H 18 147/105 97 08/05/16 08:35 08/05/16 08:35 08/05/16 08:35 08/05/16 08:35 08/05/16 08:35 Plan Follow up with: JOSSE MORENO MD [Primary Care Provider] - 7 Days
== END 2016-08-05 12:33 | disposition home health service (06) | DRG 682 ==
LOC: ED 16:25 → 4A 07-31 01:51
PROVIDERS: ADMIT Internal Medicine; ATTEND Internal Medicine
PROC: 4A033R1 Measurement of Arterial Saturation, Peripheral, Percutaneous Approach (ICD-10-PCS; principal; 2016-07-30)
DX: N17.0 Acute kidney failure with tubular necrosis (principal); E11.00 Type 2 diabetes mellitus with hyperosmolarity without nonketotic hyperglycemic-hyperosmolar coma (NKHHC); Z91.19 Patient's noncompliance with other medical treatment and regimen; I12.9 Hypertensive chronic kidney disease with stage 1 through stage 4 chronic kidney disease, or unspecified chronic kidney disease; N18.9 Chronic kidney disease, unspecified; E87.1 Hypo-osmolality and hyponatremia; F32.9 Major depressive disorder, single episode, unspecified; E87.5 Hyperkalemia; E78.5 Hyperlipidemia, unspecified; I69.954 Hemiplegia and hemiparesis following unspecified cerebrovascular disease affecting left non-dominant side
CPT/HCPCS: 36415; 80048; 80053; 80061; 81001; 82010; 82140; 82805; 82962; 83036; 83735; 84100; 85025; 90686; 90732; 93005; 93010; 96361; 96374; A9270-GY; J1644; J1815; J7030